=== PATIENT | female | born 1980 | race Caucasian/White ===

== ENCOUNTER 2021-02-18 16:24 | Emergency (ER) | payer MEDICAID ==
[~2021-02-18] VITALS: Ht 157.5 cm; Wt 51.4 kg
[2021-02-18 16:30] VITALS: BP 121/74
[2021-02-18] MEDS ORDERED: CEPH-585 PO (16:59)
[2021-02-18] MEDS ORDERED: SULF1TAB49 PO (16:59)
[2021-02-18] MEDS ORDERED: LIDOcaine 1.5% w/epinephrine 1:200,000 5ml ampul IJ ONE (17:10)
[2021-02-18] MEDS ORDERED: TETanus/Pertussis (Acell)/Diphther VAC/PF (Tdap-Adult) 0.5ml syringe IMVAC ONE (17:10)
[2021-02-18] MEDS ORDERED: LIDOcaine 1% w/epiNEPHrine 1:200,000 30ml vial IJ ONE (17:15)
== END 2021-02-18 17:23 | disposition home or self-care (01) ==
LOC: ER 16:25
DX: L02.416 Cutaneous abscess of left lower limb (principal); Z79.2 Long term (current) use of antibiotics; Z79.899 Other long term (current) drug therapy
CPT/HCPCS: 10060; 90471; 90715; 99283

== ENCOUNTER 2025-04-06 16:25 | Emergency (ER) | payer MEDICAID ==
[~2025-04-06] VITALS: Ht 157.5 cm; Wt 52.8 kg
[2025-04-06 16:31] VITALS: BP 117/66; PULSE 90; RESP 16; O2SAT 99
--- NOTE | 2025-04-06 18:09 | Physician Documentation ---
History of Present Illness ~ Chief Complaint: Abscess Stated Complaint: ABCESS Time Seen by MD: 17:03 OK to notify your PCP?: Yes Primary Medical Doctor: [facility] Mode of Arrival: POV Exam Limitations: no limitations HPI This is a 44-year-old female who comes in complaining of the red tender area in his left lower inner buttock. She has had this for the past few days. She states she has been squeezing it but nothing in his going to the out. She says now that has tender to palpation and difficult to sit on. She denies fever or chills. Tetanus Within 5 Years: No Medication Reconciliation Allergies: Coded Allergies: No Known Allergies (Unverified , 04/06/25) Past Medical History Past Medical History: No Pertinent History Past Surgical History: noncontributory Alcohol Use: None Drug Use: none Lives In: Home Physical Exam Vital Signs: Temperature: 97.5, Source: Temporal, Heart Rate: 90, Respiratory Rate: 16, BP: 117/66, Pulse Oximetry: 99, Weight: 52.800 Oxygen Flow Rate: 0 Pulse Oximetry Reflects: adequate oxygenation General Appearance: alert, WD/WN, no apparent distress Skin With a female special library librarian I inspected with the patient's left lower inner buttocks. The patient has a area of erythema and induration that is a proximally silver dollar size. It appears to have come to a head that has hyperpigmented. The areas slightly firm but fluctuant. It is tender to pal pation and warm. Procedures I & D Procedure : Anesthesia: Lidocaine Blade Size: 11 Prep/Supplies: betadine prep, packing placed Incision: mass incised, pus drained Tolerated Procedure Well?: yes, no complications Progress Results/Orders Reviewed/noted all lab results: Yes Results/Orders Vital Signs 04/06/25 16:31 Temp 97.5 Pulse 90 Resp 16 B/P (MAP) 117/66 Pulse Ox 99 O2 Flow Rate 0 Medical Decision Making Additional information obtaine: N/A Findings With the patient give her up a consent for incision and drainage which I did not perform. It was packed with iodoform gauze packing and covered with a nonstick dressing. I will place the patient on Bactrim DS to be taken twice a day for 10 days. You can take ibuprofen for pain. Two days return for packing removal. Return sooner for any worsening or concerning symptoms. Differential Dx:Considerations: Include: Abscess Additional Comment Cutaneous abscess. Insect bite. Furuncle. Staph infection Departure Disposition: HOME / SELF CARE / HOMELESS Impression: Primary Impression: Abscess Condition: Stable Discharge Instructions: Skin Abscess, [id number], Incision and Drainage Additional Instructions: Keep the current dressing clean dry and tried to keep in place. I suggest your trending in two days for wound check and packing removal. Take the antibiotics as prescribed and ibuprofen for pain. Return sooner for any worsening or concerning symptoms. Referrals: NO PRIMARY CARE PROVIDER (PCP) Prescriptions Sulfamethoxazole/Trimethoprim (Bactrim Ds Tablet) 800 Mg-160 Mg Tablet 1 TAB PO Q12H for 10 Days, #20 TAB Prov: MALIA BATES 04/06/25 Signature Scribe Signature: No scribe Attestation: The note accurately reflects work and decisions made by me.Malia WALLACE 04/06/25 18:29 MALIA BATES Apr 06, 2025 18:09
[2025-04-06] MEDS ORDERED: SULF1TAB49 PO (18:18)
[2025-04-06 18:36] VITALS: TEMP 97.5
== END 2025-04-06 18:37 | disposition home or self-care (01) ==
LOC: ER 16:25
DX: L02.31 Cutaneous abscess of buttock (principal)
CPT/HCPCS: 10060; 99283; A6407; A6449

== ENCOUNTER 2025-04-10 19:20 | Emergency (ER) | payer MEDICAID ==
[~2025-04-10] VITALS: Ht 157.5 cm; Wt 52.7 kg
[~2025-04-10 19:20] MED LIST: SULF1TAB49 PO
--- NOTE | 2025-04-10 21:05 | Physician Documentation ---
History of Present Illness ~ Chief Complaint: Wound Re-Check Stated Complaint: RE-CHECK BOIL Time Seen by MD: 20:44 OK to notify your PCP?: Yes Primary Medical Doctor: [facility] Source: patient Mode of Arrival: POV Exam Limitations: no limitations HPI Reports with healing abscess to left lower buttocks with dressing and packing in place. She reports that she was told to come back in a couple of days to get it checked. She was last seen on 04/06/2025. She reports that she has was placed on Bactrim and her last dose was yesterday night as she has been staying at a friend's house and did not have access to her antibiotic since. Medication Reconciliation Allergies: Coded Allergies: No Known Allergies (Unverified , 04/06/25) Scheduled Sulfamethoxazole/Trimethoprim (Bactrim Ds Tablet), 1 TAB PO Q12H Past Medical History Past Medical History: No Pertinent History Past Surgical History: noncontributory Alcohol Use: None Drug Use: none Lives In: Home Review of Systems All Other Systems at this time: Reviewed and Negative Physical Exam Vital Signs: RN Vital Signs have been reviewed: Yes, Temperature: 99.0, Source: Oral, Heart Rate: 111, Respiratory Rate: 20, BP: 115/85, Pulse Oximetry: 97, Weight: 52.720 Oxygen Flow Rate: 0 Pulse Oximetry Reflects: adequate oxygenation General Appearance General: Alert, no distress. HEENT: No injection, moist mucous membranes. Neck: Full range of motion. Respiratory: No respiratory distress, equal chest rise and fall. Chest: No accessory muscle use. Cardiovascular: Regular rate and rhythm. Gastrointestinal: Nondistended. Extremities: Normal range of motion, no deformity. Neurologic: Oriented x4. Psychiatric: Normal mood and affect. Skin: Partially healed abscess to left lower buttocks, dressing changed in packing came out of wound automatically. No abscess pocket seen. Some surrounding erythema and tenderness to palpation. Progress Results/Orders Reviewed/noted all lab results: Yes Results/Orders Completed Orders - ELI WILSON MICA LAYER Sulfamethox/Trimetho. Ds Tab ( Ds (04/10/25 21:10) Medications Received in ER Medications (Trade) Dose Ordered Sig/Alfonzo Route PRN Reason Start Time Stop Time Status Last Admin Dose Admin ( DS tab) 1 tab ONCE ONCE PO 04/10/25 21:10 04/10/25 21:17 DC 04/10/25 21:19 1 TAB Vital Signs 04/10/25 04/10/25 19:41 21:11 Temp 99.0 98.9 Pulse 111 101 Resp 20 18 B/P (MAP) 115/85 111/81 Pulse Ox 97 98 O2 Flow Rate 0 Medical Decision Making Additional information obtaine: old records Findings Presents for wound check. Abscess to left buttocks appears to be healing well. The packing was already expelled on the dressing. Encouraged patient to continue taking antibiotics as prescribed. She reports that she has not been home for the past day and staying at a friend's house and left her antibiotics at home. I gave her a 1 time dose of Bactrim while in the department told her to continue taking her antibiotics when she picks him up from her house tomorrow morning. Differential Dx:Considerations: Include: Erysipelas, Gangrene, Impetigo, Osteomyelitis Departure Disposition: HOME / SELF CARE / HOMELESS Impression: Primary Impression: Abscess Condition: Stable Discharge Instructions: Abscess, Care After Additional Instructions: Keep wound clean and dry. Continue taking your antibiotics. Return back here for any new or worsening symptoms. You were given a dose of your antibiotic tonight but please resume the rest of your antibiotics when you pick them up tomorrow Referrals: NO PRIMARY CARE PROVIDER (PCP) Education Educated: Patient Educated regarding: diagnosis, treatment, prognosis, need for follow up Additional Comment Medical Screen Exam This patient recieved a medical screening examination. After reviewing the individual's medical complaints with presenting symptoms and performing an appropriate physical examination, it was determined that no immediate life- threatening emergency medical condition is present. This individual is also not a women having contractions. Signature Scribe Signature: . Attestation: Scribed for Eli Wilson by Eli Guajardo NP . 04/10/25 21:01 Parts of this note were created using [employer] voice recognition software progr . While efforts were made to correct any mistakes made by this voice recognition software program, nonsensical phrases may remain in this note. In addition, there may be errors and syntax, grammar, content and spelling. ELI WILSON Apr 10, 2025 21:05
[2025-04-10 21:11] VITALS: BP 111/81; PULSE 101; RESP 18; TEMP 98.9; O2SAT 98
[2025-04-10] MEDS: sulfamethoxazole/trimethoprim DS (800/160mg) tablet PO ONE (21:19)
== END 2025-04-10 21:20 | disposition home or self-care (01) ==
LOC: ER 19:20
DX: L02.31 Cutaneous abscess of buttock (principal); Z79.899 Other long term (current) drug therapy
CPT/HCPCS: 99283